=== PATIENT | female | born 2000 ===

== ENCOUNTER → 2021-10-17 00:04 | Observation (INO) | END | disposition home or self-care (01) | LOC: 1NENULAB | PROVIDERS: ADMIT Advanced Practice Midwife; ATTEND Advanced Practice Midwife ==

== ENCOUNTER 2021-11-07 21:02 | Inpatient (IN) ==
[2021-11-07] MEDS ORDERED: Ondansetron 4 MG/2 ML VIAL IVP PRN ×2 (21:16→22:10)
[2021-11-07] MEDS ORDERED: Naloxone 0.4 MG/ML INJ IVP PRN ×2 (21:16→22:10)
[2021-11-07] MEDS ORDERED: Metoclopramide 10 MG/2 ML VIAL IVP PRN (21:16)
[2021-11-07] MEDS ORDERED: Lidocaine 1% 20 ML MDV ID PRN (21:16)
[2021-11-07] MEDS ORDERED: Azithromycin 500 MG in 0.9 % Sodium Chloride 250 ML IVPB PRN (21:16)
[2021-11-07] MEDS ORDERED: Famotidine 20 MG/2 ML VIAL IVP PRN (21:16)
[2021-11-07 21:33] LABS: Basophils # 0.1 K/mcL (0.0-0.2); Basophils % 0.4 %; Eosinophils % 0.2 %; Hematocrit 30.7 % (35.3-44.9); Immature Granulocytes % 1.2 % (0-4); Lymphocytes % 14.4 %; Mean Corpuscular HGB Conc 32.6 g/dL (31.6-35.5); Mean Corpuscular Hemoglobin 25.5 pg (28.0-33.3); Mean Corpuscular Volume 78.3 fL (83.0-100.0); Mean Platelet Volume 11.7 fL (9.4-12.4); Monocytes # 1.3 K/mcL (0.0-1.3); Monocytes % 9.4 %; Neutrophils # 10.2 K/mcL (1.6-8.9); Platelet Count 272 K/mcL (140-400); Red Blood Count 3.92 M/mcL (3.82-4.97); Red Cell Distribution Width 13.2 % (11.5-14.5); Segmented Neutrophils % 74.4 %; White Blood Count 13.8 K/mcL (4.3-11.1)
[2021-11-07 21:44] LABS: Protein/Creatinine Ratio,Urine 0.17 mg/mg (0.00-0.20)
[2021-11-07 21:45] LABS: Amphetamine Screen,Urine Negative ng/mL (Cutoff=1000); Barbiturate Screen,Urine Negative ng/mL (Cutoff=200); Benzodiazepines Screen,Urine Negative ng/mL (Cutoff=200); Cannabinoid Screen,Urine Negative ng/mL (Cutoff = 50); Cocaine Screen,Urine Negative ng/mL (Cutoff= 300); Opiate Screen,Urine Negative ng/mL (Cutoff=300); Phencyclidine Screen,Urine Negative ng/mL (Cutoff=25)
[2021-11-07 21:51] LABS: Alanine Aminotransferase 10 Units/L (7-52); Aspartate Amino Transferase 13 Units/L (13-39); BUN/Creatinine Ratio 17 (6-26); Blood Urea Nitrogen 9 mg/dL (6-20); Lactate Dehydrogenase 126 Units/L (140-271); Uric Acid 4.2 mg/dL (2.3-7.6); eGFR For African Americans > 60 (> 60); eGFR For Non-African Americans > 60 (> 60)
[2021-11-07] MEDS ORDERED: *HR* FentaNYL (PF) 100 MCG/2 ML VIAL EP ONE (22:10)
[2021-11-07] MEDS ORDERED: Ropivacaine/PF 0.2% 20 ML VIAL EP ONE (22:10)
[2021-11-07] MEDS ORDERED: EPHEDrine 50 MG/ML VIAL IVP PRN (22:10)
[2021-11-07] MEDS ORDERED: Epidural Premix (fent/bupiv) 110 ML EP SCH (22:15)
[2021-11-07 22:19] LABS: Influenza A PCR Negative (Negative); Influenza B PCR Negative (Negative); Resp. Syncytial Virus PCR Negative (Negative); SARS-CoV-2 by PCR (In House) Negative (Negative)
[2021-11-07] MEDS ORDERED: miSOPROStoL 100 MCG TABLET PO SCH (22:43)
[2021-11-07] MEDS ORDERED: Oxytocin 20 units/ LR 1000 mL 20 UNIT/1,000 ML BAG IVC SCH (23:00)
[2021-11-07] MEDS: Ringers Solution, Lactated 1,000 ML ONE (23:58)
[2021-11-08] MEDS ORDERED: Ringers Solution, Lactated 1,000 ML ONE (02:42)
[2021-11-08] MEDS ORDERED: Oxytocin 20 units/ LR 1000 mL 20 UNIT/1,000 ML BAG IVC SCH (09:48)
[2021-11-08] MEDS ORDERED: Lanolin 7 G OINT...G. TP PRN (09:48)
[2021-11-08] MEDS ORDERED: Ondansetron ODT 4 MG TAB.RAPDIS SL PRN (09:48)
[2021-11-08] MEDS ORDERED: Benzocaine/Menthol 56 GM AEROSOL SPRAY TP PRN (09:48)
[2021-11-08] MEDS: Ibuprofen 600 MG TABLET PO SCH ×2 (12:00→18:04)
[2021-11-08] MEDS: Acetaminophen 325 MG TABLET PO SCH ×2 (12:00→18:03)
[2021-11-08] MEDS: Prenatal Vit/FA 1 EACH TABLET PO SCH (12:00)
[2021-11-08] MEDS: Ringers Solution, Lactated 1,000 ML ONE (12:04)
[2021-11-09] MEDS: Ibuprofen 600 MG TABLET PO SCH ×2 (00:10→09:06)
[2021-11-09] MEDS: Acetaminophen 325 MG TABLET PO SCH ×2 (00:10→09:06)
[2021-11-09 05:48] LABS: Basophils % 0.3 %; Eosinophils # 0.1 K/mcL (0.0-0.6); Eosinophils % 0.4 %; Hematocrit 25.7 % (35.3-44.9); Immature Granulocytes % 1.3 % (0-4); Lymphocytes # 1.8 K/mcL (0.6-4.6); Lymphocytes % 14.8 %; Mean Corpuscular HGB Conc 31.1 g/dL (31.6-35.5); Mean Corpuscular Volume 80.3 fL (83.0-100.0); Mean Platelet Volume 11.6 fL (9.4-12.4); Monocytes # 1.2 K/mcL (0.0-1.3); Monocytes % 9.5 %; Platelet Count 199 K/mcL (140-400); Red Cell Distribution Width 13.5 % (11.5-14.5); Segmented Neutrophils % 73.7 %; White Blood Count 12.3 K/mcL (4.3-11.1)
[2021-11-09 08:11] VITALS: BP 125/82; PULSE 87; TEMP 97.9; O2SAT 96
[2021-11-09] MEDS: Prenatal Vit/FA 1 EACH TABLET PO SCH (09:07)
== END 2021-11-09 11:45 | disposition home or self-care (01) | DRG 560 ==
LOC: 1NENULAB 21:02 → 1NENUOBS 11-08 11:24
PROVIDERS: ADMIT Student in an Organized Health Care Education/Training Program; ATTEND Student in an Organized Health Care Education/Training Program